=== PATIENT | female | born 1960 | race Caucasian/White ===

== ENCOUNTER 2017-10-24 14:46 | Emergency (ER) | payer OTHER ==
[~2017-10-24] VITALS: Ht 162.6 cm; Wt 90.7 kg
[~2017-10-24 14:46] MED LIST: AUGMENTIN 875 M1 TAB PO; IBU600 MG PO; LISINOPRIL10 MG PO; MOTRIN 600 MG600 MG PO; PERCOCET 325 MG1 TA2 PO; TRAMADOL50 MG PO
[2017-10-24] MEDS ORDERED: MELOXICAM15 M1 PO (16:39)
[2017-10-24] MEDS ORDERED: AUGMENTIN 875-1 EACH PO (16:39)
--- NOTE | 2017-10-24 16:39 | ED THROAT/DENTAL COMPLAINT ---
History of Present Illness General Chief Complaint: General Adult Stated Complaint: SWELLING TO FACE Source: patient Exam Limitations: no limitations Vital Signs & Intake/Output Vital Signs & Intake/Output Vital Signs Date Time Temp Pulse Resp B/P B/P Pulse O2 O2 Flow FiO2 Mean Ox Delivery Rate 10/24 1709 97.7 75 15 150/80 99 Room Air Room Air 10/24 1450 98.0 82 19 170/99 100 Room Air Allergies Coded Allergies: MDX - NUTS (NUTS) (Severe, ANAPHYLAXIS- PEANUTS ARE OKAY THOUGH 05/17/15) Reconcile Medications AMOXICILLIN/POTASSIUM CLAV (Augmentin 875-125 Tablet) 875 MG/125 MG TAB 1 TAB PO BID EAR INFECTION Amoxicillin/Potassium Clav (Augmentin 875-125 Tablet) 875 MG-125 MG TABLET 1 TAB PO BID PERIORBITAL CELLULITIS Ibuprofen (Ibu) 600 MG TAB 1 TAB PO BID PRN PAIN Lisinopril 10 MG TAB 1 TAB PO DAILY BP (Reported) Meloxicam 15 MG TABLET 1 TAB PO DAILY PRN INFLAMMATION OXYCODONE HCL/ACETAMINOPHEN (Percocet 5-325 MG Tablet) 325 MG/5 MG TAB 1 TAB PO Q4-6 PRN PRN PAIN Triage Note: PT TO ED FOR L SIDED FACIAL SWELLING, STATING SHE HAD A CRACKED TOOTH FOR SEVERAL WEEKS BUT NOTICED THE SWELLING BECAME WORSE OVER THE PAST SEVERAL DAYS. Triage Nurses Notes Reviewed? yes Onset: Gradual Duration: constant Timing: recent history Severity: moderate Severity Numbers: 5 No Modifying Factors: none HPI: Patient is a 57-year-old female who presents emergency room with concerns of a gradual onset of a 3 to four-day history of left-sided facial swelling and pain and mild left ear pain. Patient does admit to poor dental hygiene and believes that she fractured a tooth approximate 2 weeks ago however denies any difficulty breathing difficulty swallowing done swelling dental pain tongue swelling lip swelling or itching sensation or shortness of breath (Edmar Munoz) Past History Travel History Traveled to [place] past 21 day No Medical History Any Pertinent Medical History? 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 No (Edmar Munoz) Review of Systems Review of Systems Constitutional: Reports: see HPI. EENTM: Reports: see HPI. Respiratory: Reports: no symptoms. Cardiovascular: Reports: no symptoms. GI: Reports: no symptoms. Genitourinary: Reports: no symptoms. Musculoskeletal: Reports: no symptoms. Skin: Reports: see HPI. Neurological/Psychological: Reports: no symptoms. Hematologic/Endocrine: Reports: no symptoms. Immunologic/Allergic: Reports: no symptoms. All Other Systems: Reviewed and Negative (Edmar Munoz) Physical Exam Physical Exam General Appearance: no apparent distress, alert, comfortable Head: atraumatic Eyes: Bilateral: normal appearance, PERRL, EOMI. Ears: Bilateral: canal normal, Tympanic normal. Mouth/Throat: normal mouth inspection, pharynx normal Neck: normal inspection, supple, full range of motion Cardiovascular/Respiratory: normal breath sounds, normal peripheral pulses Neurologic/Psych: no motor/sensory deficits, awake, alert Skin: intact Comments: Noted left inferior periorbit and left maxillary facial swelling and mild erythema warmth and tenderness Diagram Dental: 1) Noted generalized poor dental hygiene however no gum swelling no lip swelling no tongue swelling Pharynx normal no trismus Core Measures ACS in differential dx? No Sepsis Present: No Sepsis Focused Exam Completed? No (Edmar Munoz) Progress Differential Diagnosis: aspirated tooth, carious tooth, epiglottitis, Ludwigs angina, meningitis, odontogenic abscess, jose-tonsillar abscess, pharyngeal for. body, stomatitis/gingivitis, strep pharyngitis, tooth fracture Plan of Care: No concerns of anaphylaxis or angioedema at this time patient's oropharynx was unremarkable except for poor dental hygiene no gum abscess noted no peritonsillar abscess noted no concerns of orbital cellulitis patient will be treated for concerns of periorbital cellulitis. Upon discharge patient looks well nontoxic-appearing afebrile (Edmar Munoz) Departure Departure Disposition: HOME OR SELF CARE Condition: Stable Clinical Impression Primary Impression: Periorbital cellulitis of left eye Referrals: [facility] EN[facility],Efrain French (PCP/Family) Additional Instructions: As discussed begin warm compresses to the region and begin the prescription meloxicam for pain and inflammation and the prescription of Augmentin for breakthrough pain relief, if you cannot be reevaluated by primary care doctor in 2 days return to emergency room. If symptoms worsen or if YOU develop worsening pain swelling or fevers return to the emergency room immediately. Prescriptions waiting at [facility] Departure Forms: Customer Survey General Discharge Information Prescriptions: Current Visit Scripts Amoxicillin/Potassium Clav (Augmentin 875-125 Tablet) 1 TAB PO BID #20 TAB Meloxicam 1 TAB PO DAILY PRN INFLAMMATION #10 TAB (Edmar Munoz) PA/PLANT PHYSIOLOGIST Co-Sign Statement Statement: ED Attending supervision documentation- [] I saw and evaluated the patient. I have also reviewed all the pertinent lab results and diagnostic results. I agree with the findings and the plan of care as documented in the PA's/PLANT PHYSIOLOGIST's documentation. [X] I have reviewed the ED Record and agree with the PA's/PLANT PHYSIOLOGIST's documentation. [] Additions or exceptions (if any) to the PAs/PLANT PHYSIOLOGIST's note and plan are summarized below: [] (Dioni Munoz DO
[2017-10-24 17:09] VITALS: BP 150/80
== END 2017-10-24 17:09 ==
LOC: ERH 14:46
DX: L03.213 Periorbital cellulitis (principal)

== ENCOUNTER 2018-04-20 21:04 | Observation (INO) | payer OTHER ==
[~2018-04-20] VITALS: Ht 160 cm; Wt 90.7 kg
[~2018-04-20 21:04] MED LIST changes: +AUGMENTIN 875-1 EACH PO; +MELOXICAM15 M1 PO
--- NOTE | 2018-04-20 21:21 | ED GENERAL ADULT ---
History of Present Illness General Chief Complaint: General Adult Stated Complaint: "BLURRY VISION,CHEST PAIN, BILAT.LEG PAIN X 1WK" Source: patient Exam Limitations: no limitations Vital Signs & Intake/Output Vital Signs & Intake/Output Vital Signs Date Time Temp Pulse Resp B/P B/P Pulse O2 O2 Flow FiO2 Mean Ox Delivery Rate 04/21 0302 97.9 77 20 166/98 95 Room Air 04/21 0234 74 162/86 04/21 0109 74 158/70 04/21 0031 74 169/72 04/20 2355 98.1 73 18 176/84 95 Room Air 04/20 2342 81 194/80 04/20 2333 81 194/80 04/20 2253 77 195/84 04/20 2251 77 195/84 04/20 2218 75 188/90 04/20 2153 78 18 188/90 95 Room Air 04/20 2139 78 208/110 04/20 2139 78 18 208/110 94 Room Air 04/20 2130 Room Air 04/20 2110 98.0 85 18 183/96 97 Room Air ED Intake and Output 04/21 0000 04/20 1200 Intake Total Output Total Balance Patient 200 lb Weight Allergies Coded Allergies: nut - unspecified (Severe, ANAPHYLAXIS- PEANUTS ARE OKAY THOUGH 04/20/18) Reconcile Medications No Known Home Medications Triage Note: 57F W MULTIPLE COMPLAINTS. REPORTS CHEST TIGHTNESS AND SOB FOR A WEEK, DENIES CHEST PAIN. LOWER LEG SWELLING. REPORTS EYES KEEP GETTING MORE AND MORE BLURRY, CAN BARELY SEE OUT OF LEFT EYE (HX RETINAL DETACHMENT) AND RIGHT EYE X2 DAYS. HAS NOT CONTACTED HER PMD. HX HIGH BLOOD PRESSURE, STOPPED TAKING MEDS, HYPERTENSIVE IN TRIAGE. +SMOKER Triage Nurses Notes Reviewed? yes Onset: Abrupt Duration: week(s): (1), changing over time, continues in ED Timing: single episode today Injury Environment: home Severity: mild, moderate Severity Numbers: 6 No Modifying Factors: none Associated Symptoms: chest pain LMP (ages 10-50): unknown : No Patient currently breastfeeds: No HPI: 57 year female history of hypertension and obesity presents for evaluation of chest pain shortness of breath and blurred vision. Patient reports she first noticed chest pain about one week ago. The pain is located in the center of her chest described as tightness. Associated with shortness of breath. The pain is intermittent. She was felt to 6 PM tonight. It happens both at rest and during exertion and nothing seems to bring it on. She's never had this before. She denies headaches or dizziness. She does report she has a history of a retinal detachment in the left eye and has poor vision in that eye at baseline. She does report that over the past week she has had blurred vision in her right eye which is usually her good eye. She denies any visual loss occurred and sensation no eye pain discharge or redness. She does wear glasses. She also reports associated lower extremity edema. No hemoptysis no recent surgery recent trauma or immobilization. No history of PE. No back pain abdominal pain nausea or vomiting. No headaches. Patient is a current every day smoker. She presented was treated for hypertension with lisinopril but states she has not taken it in many months. (Checo Morales) Past History Travel History Traveled to [place] past 21 day No Medical History Any Pertinent Medical History? 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 No (Checo Morales) Review of Systems Review of Systems Constitutional: Reports: no symptoms. EENTM: Reports: no symptoms. Respiratory: Reports: see HPI, short of breath. Cardiovascular: Reports: see HPI, chest pain. GI: Reports: no symptoms. Genitourinary: Reports: no symptoms. Musculoskeletal: Reports: no symptoms. Skin: Reports: no symptoms. Neurological/Psychological: Reports: no symptoms. Hematologic/Endocrine: Reports: no symptoms. Immunologic/Allergic: Reports: no symptoms. All Other Systems: Reviewed and Negative (Checo Morales) Physical Exam Physical Exam General Appearance: well developed/nourished, no apparent distress, alert, awake , obese Head: atraumatic, normal appearance Eyes: Bilateral: normal appearance, PERRL, EOMI. Ears, Nose, Throat: normal pharynx, normal ENT inspection, hearing grossly normal Neck: normal inspection, supple, full range of motion Respiratory: normal breath sounds, chest non-tender, no respiratory distress, lungs clear Cardiovascular: regular rate/rhythm, normal peripheral pulses Peripheral Pulses: 2+ radial (R), 2+ radial (L) Gastrointestinal: soft, non-tender Back: normal inspection, normal range of motion Extremities: normal inspection, normal capillary refill, normal range of motion, no edema Neurologic/Psych: no motor/sensory deficits, awake, alert, oriented x 3, normal gait, normal mood/affect Skin: intact, normal color, warm/dry Lymphatic: no anterior cervical zak Core Measures ACS in differential dx? Yes CVA/TIA Diagnosis: No Sepsis Present: No Sepsis Focused Exam Completed? No (Delvin SAMS,Checo) Progress Differential Diagnoses I considered the following diagnoses in my evaluation of the patient: [ Hypertensive urgency, hypertensive emergency, acute coronary syndrome, PE, aortic dissection, CVA, TIA, pneumonia, COPD] Plan of Care: Orders Procedure Date/time Status Heart Healthy Diet 04/22 B Active Heart Healthy Diet 04/21 B Active TROPONIN LEVEL 04/21 0600 Active MAGNESIUM 04/21 0600 Active LIPID PANEL 04/21 0600 Active GLYCOSYLATED HGB 04/21 06 Active CBC WITHOUT DIFFERENTIAL 04/21 0600 Active BASIC ELECTROLYTES PLUS BUN&CR 04/21 0600 Active EKG 04/21 0600 Active ECHOCARDIOGRAM 04/21 0600 Active Teach/Educate 04/21 0251 Active Pain Treatment and Response 04/21 025 Active Nutritional Intake, Monitor 04/21 0251 Active Isolation 04/21 0251 Active Patient Care Conference 04/21 0251 Active Pathway - chart 04/21 0231 Active House Staff 04/[address] in observation 04/21 0128 Active ED Holding Orders 04/21 0128 Active Vital Signs 04/21 0128 Active Code Status 04/21 0128 Active Patient Data 04/21 0056 Active TROPONIN LEVEL 04/21 0030 Complete EKG 04/21 0030 Active VTE Mechanical Prophylaxis 04/21 UNK Active Activity/Ambulation 04/21 UNK Active Add-on Test (ER Only) 04/20 2346 Active Add-on Test (ER Only) 04/20 2331 Active Add-on Test (ER Only) 04/20 2129 Active TSH REFLEX 04/20 2125 Complete D-DIMER 04/20 2125 Complete B-TYPE NATRIURETIC PEP (BNP) 04/20 2125 Complete Intake & Output 04/20 2111 Active URINALYSIS 04/20 2109 Complete TROPONIN LEVEL 04/20 2109 Complete MAGNESIUM 04/20 2109 Complete COMPREHENSIVE METABOLIC PANEL 04/20 2109 Complete CBC WITHOUT DIFFERENTIAL 04/20 2109 Complete EKG 04/20 2107 Active Current Medications Sig/Moo Start time Last Medication Dose Stop Time Status Admin Atorvastatin Calcium 40 MG 1700 04/21 1700 AC (Lipitor) Aspirin 81 MG DAILY 04/21 0900 AC (Aspirin) Enoxaparin Sodium 40 MG DAILY 04/21 09 AC (Lovenox) Lisinopril 10 MG DAILY 04/21 09 AC (Prinivil) Metoprolol Tartrate 12.5 MG BID 04/21 09 AC (Lopressor) Acetaminophen 650 MG Q6P PRN 04/21 0230 AC (Tylenol) Laboratory Tests 04/21/18 0030: Troponin I < 0.01 04/20/182144: Urine Color YEL, Urine Clarity HAZY H, Urine pH 6.0, Ur Specific [place] 1.025, Urine Protein TRACE H, Urine Ketones NEG, Urine Nitrite NEG, Urine Bilirubin NEG, Urine Urobilinogen 1.0, Ur Leukocyte Esterase TRACE H, Ur Microscopic SEDIMENT EXAMINED, Urine RBC 1-3, Urine WBC 5-10 H, Ur Epithelial Cells MANY H , Urine Bacteria MOD H, Urine Mucus FEW, Urine Hemoglobin SMALL H, Urine Glucose NEG 04/20/182124: Anion Gap 6, Estimated GFR > 60, BUN/Creatinine Ratio 18.3, Glucose 104 H, Calcium 9.9, Magnesium 1.9, Total Bilirubin 0.4, AST 24, ALT 32, Alkaline Phosphatase 81, Troponin I < 0.01, Myx-G-Kfuhtrzztgt Pept 60.7, Total Protein 6.9, Albumin 4.1, Globulin 2.8, Albumin/Globulin Ratio 1.5, TSH &T3 &Free T4 Intrp 3.690, D-Dimer High Sensitivty < 200, CBC w Diff NO MAN DIFF REQ, RBC 5.60 H, MCV 85.0, MCH 28.2, MCHC 33.2, RDW 14.7 H, MPV 10.1, Gran % 65.3, Lymphocytes % 22.9, Monocytes % 9.1, Eosinophils % 2.1, Basophils % 0.6, Absolute Granulocytes 8.7 H, Absolute Lymphocytes 3.0, Absolute Monocytes 1.2 H, Absolute Eosinophils 0.3, Absolute Basophils 0.1 Patient is here for evaluation of chest pain shortness of breath and hypertension. Currently patient has no chest pain she states the last episode was around 6 PM tonight. Initial blood pressure is 180s over 90s. Repeat blood pressure is 200s over 110s. Patient was medicated initially with 10 mg IV labetalol she was also given her 10 mg of lisinopril. Labs chest x-ray EKG ordered. Blood work overall is unremarkable she does have a mildly elevated white count of 13,000. Urine shows some sinus infection and patient is asymptomatic. Patient remains significantly hypertensive 10 mg of hydralazine was ordered. Patient will also get a CTA to rule out dissection given the patient has pain with hypertensive urgency. CTA is negative. Patient still was hypertensive and with 15 mg of IV labetalol was ordered patient had some improvement in her blood pressure to the 170s over 80s. Repeat EKG does not show any significant change. Given patient's multiple risk factors significant hypertension associated with chest pain and blurred vision she will be brought into the hospital to rule out acute coronary syndrome and to get control of her blood pressure. Case discussed with Dr. Brennan and she agrees. Diagnostic Imaging: Viewed by Me: Radiology Read, CT Scan. Discussed w/RAD: Radiology Read, CT Scan. Radiology Impression: PATIENT: GREG ABREU PRESENT AGE: 57 PATIENT ACCOUNT NO: [id number] : 61 LOCATION: [facility] ORDERING PHYSICIAN: Checo SAMS SERVICE DATE: 04/20/18 EXAM TYPE: CAT - CT HEAD WO IV CONTRAST EXAMINATION: CT HEAD WITHOUT CONTRAST CLINICAL INFORMATION: Blurred vision. Headache. COMPARISON: None TECHNIQUE: Contiguous axial imaging was performed from the skull base to vertex without intravenous administration of contrast. DLP: 600.42 mGy-cm FINDINGS: There is no evidence of acute intracranial hemorrhage or territorial infarction. No abnormal mass effect or midline shift is seen. Arias to white matter differentiation is well preserved. No extra-axial fluid collections are identified. The ventricles are normal in size. There is no abnormal attenuation within the brain parenchyma. The osseous structures and soft tissues are normal. The mastoid air cells and visualized portions of the paranasal sinuses are well aerated. IMPRESSION: No acute intracranial pathology. DICTATED BY: Presley Chew MD DATE/TIME DICTATED:04/20/182220 SUPERVISOR FELLING BUCKING:SHARON DATE/TIME TRANSCRIBED:04/20/182220 CONFIDENTIAL, DO NOT COPY WITHOUT APPROPRIATE AUTHORIZATION., PATIENT: GREG ABREU PRESENT AGE: 57 PATIENT ACCOUNT NO: [id number] : 62 LOCATION: [facility] ORDERING PHYSICIAN: Checo SAMS SERVICE DATE: 04/20/18 EXAM TYPE: CAT - CTA CHEST-AORTIC DISSECTION EXAMINATION: CT CHEST WITH CONTRAST, CTA chest-aortic dissection protocol CLINICAL INFORMATION: Chest pain. Hypertensive COMPARISON: None. TECHNIQUE: Noncontrast axial CT images obtained through the chest. IV injection of 95 mL Optiray 320 administered. Postcontrast images obtained through the chest. Coronal and sagittal reformatted images performed at CT scanner. Axial MIP post processed sequence performed at the CT scanner. DLP: 1491.91 mGy-cm. FINDINGS: Vascular: The thoracic aorta is normal in caliber. There is no aortic dissection. There are small calcifications of the wall of the aorta at the aortic arch. Normal three-vessel aortic arch. The origin of great vessels are unremarkable. There is good opacification also of the pulmonary arteries with no evidence of pulmonary embolism. LUNGS: The lungs are clear with no evidence of inflammation or nodules. MEDIASTINUM: There is a small hiatal hernia. No pericardial effusion. No mediastinal mass. No significant lymphadenopathy. PLEURA: There is no pleural effusion. No pleural mass or thickening. AXILLA: No lymphadenopathy. UPPER ABDOMEN: There is diffuse low attenuation from fatty change of liver. There is a small gallstone seen at the neck of the gallbladder. OSSEOUS STRUCTURES: Degenerative spondylosis spine multilevel disc height narrowing and plate spurring of the vertebrae. IMPRESSION : Normal CT chest. Normal thoracic aorta. DICTATED BY: Presley Chew MD DATE/TIME DICTATED:04/20/182332 SUPERVISOR FELLING BUCKING:SHARON DATE/TIME TRANSCRIBED:2332 CONFIDENTIAL, DO NOT COPY WITHOUT APPROPRIATE AUTHORIZATION. < Electronically signed in Other Vendor System> SIGNED BY: Presley Chew MD 234 CXR Impression: PATIENT: GREG ABREU PRESENT AGE: 57 PATIENT ACCOUNT NO: [id number] : 62 LOCATION: [facility] ORDERING PHYSICIAN: Checo SAMS SERVICE DATE: 04/20/18 EXAM TYPE: RAD - XRY-PORTABLE CHEST XRAY EXAMINATION: XR PORTABLE CHEST CLINICAL INFORMATION: Chest pain. Presumptive diagnosis: Pneumonia, CHF COMPARISON: 04/08/2015 TECHNIQUE: Portable frontal view of the chest was obtained. FINDINGS: Lung volumes are normal. Lungs appear clear. No focal consolidation, pneumothorax, or pleural effusion. Cardiac silhouette is at the upper limits of normal in size, unchanged. Pulmonary vasculature is normal. No interstitial edema. Degenerative disc disease is present in the thoracic spine. Osseous structures are otherwise unremarkable. IMPRESSION: No acute pulmonary findings. DICTATED BY: Jin Cheema MD DATE/TIME DICTATED:04/20/182139 SUPERVISOR FELLING BUCKING:SHARON DATE/TIME TRANSCRIBED:2139 CONFIDENTIAL, DO NOT COPY WITHOUT APPROPRIATE AUTHORIZATION. Initial ED EKG: normal sinus rhythm, nonspecific ST T wave chg, LEFT ATRIAL ABN, IVCD Prior EKG: unchanged Repeat EKG: unchanged (Checo Morales) Departure Departure Disposition: STILL A PATIENT Condition: Stable Clinical Impression Primary Impression: Hypertensive urgency Secondary Impressions: Chest pain Qualifiers: Chest pain type: unspecified Qualified Code: R07.9 - Chest pain, unspecified Referrals: [facility],Efrain French (PCP/Family) Departure Forms: Customer Survey General Discharge Information Prescriptions: Current Visit Scripts No Known Home Medications Admission Note Spoke With: John Johnson MD Documentation of Exam: Documentation of any treatments & extenuating circumstances including Concerns Regarding Discharge (functional status, medication knowledge or non-compliance, living conditions, etc.) that warrant an admission rather than observation: [ Patient has hypertensive urgency that required multiple IV medications to get into a safe range. She also has chest pain with multiple risk factors. For IV antihypertensives, cardiology consult, telemetry, serial labs, serial EKGs, echocardiogram, medication adjustment] (Checo Morales) PA/INSURANCE LOSS CONTROL SURVEYOR Co-Sign Statement Statement: ED Attending supervision documentation- [] I saw and evaluated the patient. I have also reviewed all the pertinent lab results and diagnostic results. I agree with the findings and the plan of care as documented in the PA's/INSURANCE LOSS CONTROL SURVEYOR's documentation. [X] I have reviewed the ED Record and agree with the PA's/INSURANCE LOSS CONTROL SURVEYOR's documentation. [] Additions or exceptions (if any) to the PAs/INSURANCE LOSS CONTROL SURVEYOR's note and plan are summarized below: [] (Anu ENRIQUE, Kadi) Critical Care Note Critical Care Note Critical Care Time: 75-104 min (Checo Morales)
[2018-04-20 21:40] LABS: ABSOLUTE BASOPHIL COUNT 0.1 /CUMM (0.0-0.2); ABSOLUTE EOSINOPHIL COUNT 0.3 /CUMM (0.0-0.7); ABSOLUTE GRANULOCYTE CT 8.7 /CUMM (1.4-6.5); ABSOLUTE MONOCYTE COUNT 1.2 /CUMM (0.10-0.60); BASOPHIL % 0.6 % (0.0-2.0); EOSINOPHIL % 2.1 % (0-5); GRANULOCYTE % 65.3 % (42.2-75.2); HEMATOCRIT 47.6 % (37-47); MEAN CORPUSCULAR HGB 28.2 PG (27.0-31.0); MEAN CORPUSCULAR HGB CONC 33.2 G/DL (33.0-37.0); MEAN PLATELET VOLUME 10.1 FL (7.4-10.4); PLATELET COUNT 190 /CUMM (130-400); RBC DISTRIBUTION WIDTH 14.7 % (11.5-14.5); WHITE BLOOD CELL COUNT 13.3 /CUMM (4.8-10.8)
--- NOTE | 2018-04-20 21:44 | RADIOLOGY REPORT ---
EXAMINATION: XR PORTABLE CHEST CLINICAL INFORMATION: Chest pain. Presumptive diagnosis: Pneumonia, CHF COMPARISON: 04/08/2015 TECHNIQUE: Portable frontal view of the chest was obtained. FINDINGS: Lung volumes are normal. Lungs appear clear. No focal consolidation, pneumothorax, or pleural effusion. Cardiac silhouette is at the upper limits of normal in size, unchanged. Pulmonary vasculature is normal. No interstitial edema. Degenerative disc disease is present in the thoracic spine. Osseous structures are otherwise unremarkable. IMPRESSION: No acute pulmonary findings.
--- NOTE | 2018-04-20 22:31 | CT SCAN REPORT ---
EXAMINATION: CT HEAD WITHOUT CONTRAST CLINICAL INFORMATION: Blurred vision. Headache. COMPARISON: None TECHNIQUE: Contiguous axial imaging was performed from the skull base to vertex without intravenous administration of contrast. DLP: 600.42 mGy-cm FINDINGS: There is no evidence of acute intracranial hemorrhage or territorial infarction. No abnormal mass effect or midline shift is seen. Arias to white matter differentiation is well preserved. No extra-axial fluid collections are identified. The ventricles are normal in size. There is no abnormal attenuation within the brain parenchyma. The osseous structures and soft tissues are normal. The mastoid air cells and visualized portions of the paranasal sinuses are well aerated. IMPRESSION: No acute intracranial pathology.
--- NOTE | 2018-04-20 23:42 | CT SCAN REPORT ---
EXAMINATION: CT CHEST WITH CONTRAST, CTA chest-aortic dissection protocol CLINICAL INFORMATION: Chest pain. Hypertensive COMPARISON: None. TECHNIQUE: Noncontrast axial CT images obtained through the chest. IV injection of 95 mL Optiray 320 administered. Postcontrast images obtained through the chest. Coronal and sagittal reformatted images performed at CT scanner. Axial MIP post processed sequence performed at the CT scanner. DLP: 1491.91 mGy-cm. FINDINGS: Vascular: The thoracic aorta is normal in caliber. There is no aortic dissection. There are small calcifications of the wall of the aorta at the aortic arch. Normal three-vessel aortic arch. The origin of great vessels are unremarkable. There is good opacification also of the pulmonary arteries with no evidence of pulmonary embolism. LUNGS: The lungs are clear with no evidence of inflammation or nodules. MEDIASTINUM: There is a small hiatal hernia. No pericardial effusion. No mediastinal mass. No significant lymphadenopathy. PLEURA: There is no pleural effusion. No pleural mass or thickening. AXILLA: No lymphadenopathy. UPPER ABDOMEN: There is diffuse low attenuation from fatty change of liver. There is a small gallstone seen at the neck of the gallbladder. OSSEOUS STRUCTURES: Degenerative spondylosis spine multilevel disc height narrowing and plate spurring of the vertebrae. IMPRESSION: Normal CT chest. Normal thoracic aorta.
--- NOTE | 2018-04-21 01:18 | History & Physical ---
Moris Watkins 04/21/18 0116: General Information and HPI MD Statement: I have seen and personally examined GREG ABREU and documented this H&P. The patient is a 57 year old F who presented with a patient stated chief complaint of BLURRY VISION, CHEST PAIN X 1 WEEK. Source of Information: patient, old records Exam Limitations: poor historian History of Present Illness: Patient is a 57-year-old female with past medical history of hypertension who presents with chest pain, shortness of breath, and blurred vision. Patient reports she first noticed that the chest pain about a week ago. The pain is located substernally and is described as tightness. It is associated with shortness of breath but both the shortness of breath and the chest pain are intermittent. The pain happens both at rest and during exertion, however exertion seems to make it worse. Sitting still does seem to improve it. She reports over the past week she has had blurred vision in her "good" eye, the right one. She also describes what sounds like a central scotoma on her left eye. She denies any vision loss and no eye pain, discharge or redness. She does wear corrective lenses. She denies hemoptysis, recent surgery, recent trauma, or immobilization. No history of pulmonary embolism. Patient is a current smoker. Of note, in the past patient was treated for hypertension with lisinopril, but states she is not taking it in a few years. In the emergency department, patient was found to have a blood pressure >200/100 , a leukocytosis of 13.3, her EKG showed normal sinus rhythm with nonspecific ST -T wave changes. Her chest x-ray showed no acute pulmonary findings, head CT showed no acute intracranial pathology, chest CT showed no abnormalities. Her initial troponin was negative. Patient is being admitted to telemetry for consideration of hypertensive urgency. Allergies/Medications Allergies: Coded Allergies: nut - unspecified (Severe, ANAPHYLAXIS- PEANUTS ARE OKAY THOUGH 04/20/18) Home Med list No Known Home Medications Compliance With Home Meds: UNKNOWN Past History Travel History Traveled to [place] past 21 day No Medical History Neurological: NONE EENT: NONE Cardiovascular: hypertension Respiratory: NONE Gastrointestinal: NONE Hepatic: NONE Renal: NONE Musculoskeletal: NONE Psychiatric: NONE Endocrine: NONE Blood Disorders: NONE Cancer(s): NONE HYDROGEOLOGIST/Reproductive: NONE History of MRSA: No History of VRE: No History of CDIFF: No Surgical History Surgical History: D&C Past Family/Social History Psychosocial History Where do you live? Home Who Do You Live With? spouse Services at Home: None Primary Language: [place] Smoking Status: Current Everyday Smoker ETOH Use: denies use Illicit Drug Use: denies illicit drug use Functional Ability ADLs Independent: dressing, eating, toileting, bathing. Ambulation: independent IADLs Independent: shopping, housework, finances, food prep, telephone, transportation , medication admin. Review of Systems Review of Systems Constitutional: Reports: no symptoms. EENTM: Reports: blurred vision, visual changes. Denies: eye pain, eye drainage, eye tearing. Cardiovascular: Reports: chest pain. Denies: palpitations, syncope. Respiratory: Reports: no symptoms. GI: Reports: no symptoms. Genitourinary: Reports: no symptoms. Musculoskeletal: Reports: no symptoms. Skin: Reports: no symptoms. Neurological/Psychological: Reports: no symptoms. All Other Systems: Reviewed and Negative Exam & Diagnostic Data Last 24 Hrs of Vital Signs/I&O Vital Signs Date Time Temp Pulse Resp B/P B/P Pulse O2 O2 Flow FiO2 Mean Ox Delivery Rate 04/21 0302 97.9 77 20 166/98 95 Room Air 04/21 0234 74 162/86 04/21 0109 74 158/70 04/21 0031 74 169/72 04/20 2355 98.1 73 18 176/84 95 Room Air 04/20 2342 81 194/80 04/20 2333 81 194/80 04/20 2253 77 195/84 04/20 2251 77 195/84 04/20 2218 75 188/90 04/20 2153 78 18 188/90 95 Room Air 04/20 2139 78 208/110 04/20 2139 78 18 208/110 94 Room Air 04/20 2130 Room Air 04/20 2110 98.0 85 18 183/96 97 Room Air Intake & Output 04/21 0800 04/21 0000 04/20 1600 Intake Total Output Total Balance Patient 200 lb 200 lb Weight Physical Exam General Appearance Alert, Oriented X3, Cooperative, No Acute Distress Skin No Rashes, No Breakdown, No Significant Lesion Skin Temp/Moisture Exam: Warm/Dry HEENT Atraumatic, PERRLA, EOMI, Mucous Membr. moist/pink Neck Supple, No JVD, No thryomegaly Cardiovascular Regular Rate, Normal S1, Normal S2, No Murmurs Lungs Clear to Auscultation, Normal Air Movement Abdomen Soft, No Tenderness Neurological Normal Speech, Strength at 5/5 X4 Ext, Normal Tone, Sensation Intact Extremities No Clubbing, No Cyanosis, No Edema Last 24 Hrs of Labs/Stuart: Laboratory Tests 04/21/18 0030: Troponin I < 0.01 04/20/185: Urine Color YEL, Urine Clarity HAZY H, Urine pH 6.0, Ur Specific [place] 1.025, Urine Protein TRACE H, Urine Ketones NEG, Urine Nitrite NEG, Urine Bilirubin NEG, Urine Urobilinogen 1.0, Ur Leukocyte Esterase TRACE H, Ur Microscopic SEDIMENT EXAMINED, Urine RBC 1-3, Urine WBC 5-10 H, Ur Epithelial Cells MANY H , Urine Bacteria MOD H, Urine Mucus FEW, Urine Hemoglobin SMALL H, Urine Glucose NEG 04/20/182124: Anion Gap 6, Estimated GFR > 60, BUN/Creatinine Ratio 18.3, Glucose 104 H, Calcium 9.9, Magnesium 1.9, Total Bilirubin 0.4, AST 24, ALT 32, Alkaline Phosphatase 81, Troponin I < 0.01, [id number] Pept 60.7, Total Protein 6.9, Albumin 4.1, Globulin 2.8, Albumin/Globulin Ratio 1.5, TSH &T3 &Free T4 Intrp 3.690, D-Dimer High Sensitivty < 200, CBC w Diff NO MAN DIFF REQ, RBC 5.60 H, MCV 85.0, MCH 28.2, MCHC 33.2, RDW 14.7 H, MPV 10.1, Gran % 65.3, Lymphocytes % 22.9, Monocytes % 9.1, Eosinophils % 2.1, Basophils % 0.6, Absolute Granulocytes 8.7 H, Absolute Lymphocytes 3.0, Absolute Monocytes 1.2 H, Absolute Eosinophils 0.3, Absolute Basophils 0.1 Diagnostic Data EKG Results Normal sinus rhythm, nonspecific ST-T wave changes CXR Results No acute pulmonary findings Other Results Head CTno acute intracranial pathology Chest CTno abnormalities Assessment/Plan Assessment: Patient is a 57-year-old female with past medical history of hypertension who presents with chest pain, shortness of breath, and blurred vision of one week duration. Problem list/plan: Hypertensive urgency -Received IV labetalol and hydralazine in the ED taken in years DVT prophylaxis: Subcu heparin and ALPS Heart healthy diet Patient is full code As Ranked By This Provider Problem List: 1. Hypertensive urgency 2. Chest pain Qualifiers Chest pain type: unspecified Qualified Code: R07.9 - Chest pain, unspecified Core Measures/Misc (05/16) Acute Coronary Syndrome ACS Diagnosis: No Congestive Heart Failure Congestive Heart Failure Diagnosis No Cerebrovascular Accident CVA/TIA Diagnosis: No VTE (View Protocol) VTE Risk Factors Age>40 No Mechanical VTE Prophylaxis d/t N/A MechProphylax Ordered No VTE Pharm Prophylaxis d/t NA PharmProphylax ordered Sepsis (View protocol) Sepsis Present: No If YES complete Sepsis Event Note If YES complete Sepsis Event Note Rene Carlos MD 04/21/18 0228: Core Measures/Misc (05/16) Sepsis (View protocol) If YES complete Sepsis Event Note If YES complete Sepsis Event Note Resident Review Statement Resident Statement: examined this patient, discussed with hospital intern, agreed with hospital intern, reviewed EMR data (avail) Other Findings: 57 year old female with PMH of obesity, 40 pack-years current everyday smoker, and HTN off medications for several years because of lack of insurance coverage presents with several weeks of intermittent chest pain, that acutely worsened with associated exertional dyspnea, and visual changes over the past week. She describes two weeks intermittent substernal pressure like nonradiating chest pain that last approximately 5 mins each episode worse with exertion and improved with rest. Today, her pain was more severe entire chest tightness with associated exertional dyspnea prompting evaluation. Her left eye she describes as her "weak eye" originally stated she had retinal detachment although that doesn't seem to be the case. She has had chronic floaters in that eye but one week of describing a central scotoma with a shadow in the middle with preserved peripheral vision. Her right eye she states has become more blurry over the past two days. She does wear corrective lenses and has no pain with eye movements or conjuctival/scleral injection. FH notable for CHF mother 68, sister 40 cardiac complications s/p postop adrenal tumor, father bladder ca. In the ED, she presented with a normal heart rate and blood pressure of 208/110. She was treated with labetalol IV 10mg and 15mg, hydralazine 10mg iv, and lisinopril 10mg po in addition to aspirin 325mg. EKG new RBBB Her first troponin was negative and labs only notable for leukocytosis of 13,300. Her physical exam was AAOx3, NAD, obese, CV RRR S1 S2 no murmurs pulses palpable peripherally, no lower extremity edema lungs CTA, abdomen soft nt/nd bs+, EOMI, sclera noninjectived, YASMIN, positive red reflex with limited fundoscopic exam but no appreciable papillary edema Hypertensive urgency: Chest pain and visual changes for the past week, renal function normal New right bundle branch pattern on EKG, Troponins negative x 2 Blood pressure 208/110 on presentation, now 169/72 Received intravenous labetalol and hydralazine in the ED Restarted lisinopril 10mg Check serial troponins and EKGs Cardiology consultation Consider ophthalmology consultation for dilated retinal exam Echocardiogram for structural heart disease Will likely need stress testing for CAD risk stratification Counseled on smoking cessation Check lipid panel and hemoglobin A1C for risk factor assessment Start aspirin 81mg, atorvastatin 40mg, and metoprolol 12.5mg po bid Goal reduction of MAP by 15-20% acutely Heart healthy diet DVT ppx-lovenox sc Full code John Johnson MD 04/21/18 0433: Core Measures/Misc (05/16) Sepsis (View protocol) If YES complete Sepsis Event Note If YES complete Sepsis Event Note Attending MD Review Statement Attending Statement Attending MD Statement: examined this patient, discuss w/resident/PA/SKEIN DYER, agreed w/resident/PA/SKEIN DYER Attending Assessment/Plan: Patient is seen and examined independently by me. Care plan discussed with durable medical equipment technician and/or resident. I agree with the physical exam findings and plan of care as outlined above with the following changes and additions. 57 yo F with history of HTN, chronic smoker, obesity, retinal detachment of left eye, non compliance with meds, presented with chest tightness and SOB intermittently for 1 week. She has lower leg swelling and blurred vision over the last week. She normally has left eye blurred vision due to left eye retinal detachment but she has new right blurred vision over the last few days. About 6 pm tonight, she has recurrent chest pain with tightness and SOB. She denies fever, chills, headache, lightheadedness, dizziness, diaphoresis, productive cough, abdominal pain, nausea, vomiting, diarrhea or dysuria. She is supposed to be on Lisinopril but stopped few years ago. On exam, heart: regular, S1S2. Lungs: clear bilaterally. Ext: no pedal edema. In the ED, BP as high as 208/110. Patient got Labetalol 10 mg IV, hydralazine 10 mg IV, Lisinopril 10 mg PO then labetalol 15 mg IV. Repeat BP 158/70. Her new blurred vision resolved after BP improved. Patient also got ASA 325 mg PO in the ED. WBC 13.3. D-dimer <200. Troponin <0.01. BNP 60.7. UA is a contaminated sample. CXR shows no acute infiltrate or edema. CT head shows no acute intracranial abnormality. CTA chest shows no acute PE or aortic dissection. EKG#1 shows NSR at 87 with new RBBB. EKG#2 shows NSR at 71 with right bundle pattern. Patient is placed on observation to [facility] for chest pain with new RBBB and hypertensive urgency. Cardiac monitoring. Check serial troponin/EKG. Start ASA, statin, metoprolol and lisinopril. Echocardiogram. Cardiology consult. Repeat UA. Consider Ophthalmology consult. John Johnson MD FACP
[2018-04-21 03:02] VITALS: BP 166/98
[2018-04-21 06:36] VITALS: BP 146/62
--- NOTE | 2018-04-21 07:10 | PN- Housestaff ---
JeffersonEtta branMatthew 04/21/18 0710: Subjective Follow-up For: HTN Subjective: Patient is resting comfortably. Denies headache, chest pain, tingling in her extremities, changes in vision, trouble breathing. No events overnight. No events on telemetry. Review of Systems Constitutional: Reports: see HPI. Objective Last 24 Hrs of Vital Signs/I&O Vital Signs Date Time Temp Pulse Resp B/P B/P Pulse O2 O2 Flow FiO2 Mean Ox Delivery Rate 04/21 1501 98.2 68 18 140/100 98 Room Air 04/21 09 97.9 78 20 146/62 04/21 0919 97.9 78 146/62 04/21 0636 97.9 78 20 146/62 92 Intake & Output 04/22 0800 04/22 0000 04/21 1600 Intake Total 820 Output Total Balance 820 Intake, Oral 820 Physical Exam General Appearance: Alert, Oriented X3, Cooperative, No Acute Distress Skin Temp/Moisture Exam: Warm/Dry HEENT: Atraumatic, EOMI Cardiovascular: Regular Rate, Normal S1, Normal S2 Lungs: Clear to Auscultation, Normal Air Movement Abdomen: Normal Bowel Sounds, Soft, No Tenderness Extremities: No Cyanosis, Normal Pulses, No Tenderness/Swelling Current Medications: Current Medications Sig/Moo Start time Last Medication Dose Route Stop Time Status Admin Acetaminophen 650 MG Q6P PRN 04/21 0230 DCD PO Aspirin 81 MG DAILY 04/21 900 DCD 04/21 PO 0919 Atorvastatin Calcium 40 MG 1700 04/21 1700 DCD PO Enoxaparin Sodium 40 MG DAILY 04/21 900 DCD 04/21 SC 0919 Lisinopril 10 MG DAILY 04/21 900 DCD 04/21 PO 0919 Metoprolol Tartrate 12.5 MG BID 04/21 09 DCD 04/21 PO 0919 Last 24 Hrs of Lab/Stuart Results Last 24 Hrs of Labs/Mics: Laboratory Tests 04/21/18 0633: Anion Gap 6, Estimated GFR > 60, BUN/Creatinine Ratio 20.0, Hemoglobin A1c 6.5 H, Magnesium 2.0, Troponin I < 0.01, Triglycerides 109, Cholesterol 202 H, LDL Cholesterol, Calc 138 H, HDL Cholesterol 43, Cholesterol/HDL Ratio 5 H, CBC w Diff NO MAN DIFF REQ, RBC 5.37, MCV 86.1, MCH 28.4, MCHC 33.0, RDW 14.4, MPV 10.9 H, Gran % 66.6, Lymphocytes % 22.9, Monocytes % 8.6, Eosinophils % 1.6, Basophils % 0.3, Absolute Granulocytes 7.2 H, Absolute Lymphocytes 2.5, Absolute Monocytes 0.9 H, Absolute Eosinophils 0.2, Absolute Basophils 0 Assessment/Plan Assessment: 57-year-old female with past medical history of hypertension who presents with chest pain, shortness of breath, and blurred vision. Patient reports she first noticed the chest pain about a week ago. The pain is located substernally and is described as tightness. It is associated with shortness of breath but both symptoms are intermittent. The pain happens both at rest and during exertion, however exertion seems to make it worse. Resting seems to improve it. She reports over the past week she has had blurred vision in her "good" eye, the right one. In the emergency department, patient was found to have a blood pressure >200/100, a leukocytosis of 13.3, her EKG showed normal sinus rhythm with nonspecific ST-T wave changes. Her chest x-ray showed no acute pulmonary findings, head CT showed no acute intracranial pathology, chest CT showed no abnormalities. Her initial troponin was negative. Patient admitted to telemetry for consideration of hypertensive urgency. ECG 1 showed NSR at 87 with new RBBB ECG 2 showed NSR at 71 with RBBB pattern - cardiology consult - trops negative x 3 - encourage ambulation - echocardiogram - continue current regimen started inpatient: aspirin 81mg, Linsinopril 10mg, Metoprolol 12.5 mg BID, Atorvastatin 40mg - Cardiac recs appreciated: From a cardiac standpoint, once the patient's blood pressure is well controlled, if she remains asymptomatic, she can be safely discharged for further cardiac evaluation as an outpatient with a pharmacologic nuclear stress test at a later date Problem List: 1. Hypertensive urgency Pain Ratin Pain Location: na Pain Goal: Remain pain free Pain Plan: per pathway Tomorrow's Labs & Rationales: None Michelle Lala MD 04/21/18 1210: Attending Review Statement Attending Statement Attending Statement: examined this patient, discuss w/resident/PA/BRANCH OPERATION EVALUATION MANAGER, agreed w/resident/PA/BRANCH OPERATION EVALUATION MANAGER, reviewed EMR data (avail), discussed with nursing, discussed with case mgmt, amended to note Attending Assessment/Plan: Patient seen and examined. Resting comfortably not in any acute distress. Denies any further chest pain. Denies shortness of breath or palpitations. Blood pressure has improved significantly compared to presentation. No events on telemetry monitoring overnight. CT angiogram shows no evidence of aortic aneurysm. We will continue the current antihypertensive regimen. If her blood pressure remained stable she will be discharged on this regimen. We will follow-up results of echocardiogram to evaluate for cardiomyopathy. Given her history of uncontrolled hypertension abnormal EKG and complaints of chest pain she will benefit from stress test to rule out ischemic heart disease as etiology of her chest pain. She was seen by the cardiology service. Recommendations are for outpatient stress test. She will need referral to primary care provider and will benefit from referral to the lifestyle modification clinic.
[2018-04-21 08:25] LABS: ABSOLUTE BASOPHIL COUNT 0 /CUMM (0.0-0.2); ABSOLUTE EOSINOPHIL COUNT 0.2 /CUMM (0.0-0.7); ABSOLUTE GRANULOCYTE CT 7.2 /CUMM (1.4-6.5); ABSOLUTE LYMPH COUNT 2.5 /CUMM (1.2-3.4); ABSOLUTE MONOCYTE COUNT 0.9 /CUMM (0.10-0.60); BASOPHIL % 0.3 % (0.0-2.0); EOSINOPHIL % 1.6 % (0-5); GRANULOCYTE % 66.6 % (42.2-75.2); HEMATOCRIT 46.2 % (37-47); MEAN CORPUSCULAR HGB 28.4 PG (27.0-31.0); MEAN CORPUSCULAR VOLUME 86.1 FL (81.0-99.0); MEAN PLATELET VOLUME 10.9 FL (7.4-10.4); PLATELET COUNT 168 /CUMM (130-400); RBC DISTRIBUTION WIDTH 14.4 % (11.5-14.5); RED BLOOD CELL CT 5.37 /CUMM (4.20-5.40); WHITE BLOOD CELL COUNT 10.8 /CUMM (4.8-10.8)
--- NOTE | 2018-04-21 13:46 | Cons- Cardiology ---
General Information and HPI Consulting Request Date of Consult: 04/21/18 Requested By: John Johnson MD Reason for Consult: Chest discomfort, hypertensive urgency, abnormal ECG Source of Information: patient, family Exam Limitations: no limitations History of Present Illness: The patient is a 57-year-old female with a past medical history of hypertension. She presented to the emergency room yesterday with chest discomfort, shortness of breath, visual changes, etc. According to the patient, she was previously on lisinopril for her blood pressure but stopped taking it several years ago due to financial/insurance issues. She has also not seen her primary care physician for several years. The chest discomfort symptoms were substernal tightness, they occurred at rest and possibly during exertion. There is some respiratory component to the symptoms as well. Visual issues as noted in the general medical history. The patient denies any other known cardiac history. In the emergency room, the patient was noted to have a blood pressure of 220/105. Since admission, and with improved blood pressure control, the patient's symptoms are resolved. Her serial troponins were negative and her ECG has not shown any evolutionary changes. Allergies/Medications Allergies: Coded Allergies: nut - unspecified (Severe, ANAPHYLAXIS- PEANUTS ARE OKAY THOUGH 04/20/18) Home Med List: Aspirin (Aspirin*) 81 MG TAB.CHEW 1 TAB PO DAILY HEART . Atorvastatin Calcium 40 MG TABLET 1 MG PO DAILY heart . Lisinopril 10 MG TABLET 1 TAB PO DAILY BP . Metoprolol Tartrate 25 MG TABLET 0.5 TAB PO BID HEART . Current Medications: Current Medications Sig/Moo Start time Last Medication Dose Route Stop Time Status Admin Acetaminophen 650 MG Q6P PRN 04/21 0230 AC PO Aspirin 81 MG DAILY 04/21 0900 AC 04/21 PO 0919 Aspirin 0 .STK-MED ONE 04/21 0113 DC PO Aspirin 325 MG ONCE ONE 04/21 0100 DC 04/21 PO 04/21 0101 0114 Atorvastatin Calcium 40 MG 1700 04/21 1700 AC PO Enoxaparin Sodium 40 MG DAILY 04/21 0900 AC 04/21 SC 0919 Hydralazine HCl 0 .STK-MED ONE 04/20 221 DC .ROUTE Hydralazine HCl 10 MG ONCE ONE 04/20 2215 DC 04/20 IV 04/20 Labetalol HCl 0 .STK-MED ONE 04/20 2337 DC IV Labetalol HCl 15 MG ONCE ONE 04/20 2330 DC 04/20 IV 04/20 2331 2342 Labetalol HCl 10 MG ONCE ONE 04/20 2145 DC 04/20 IV 04/20 Labetalol HCl 0 .STK-MED ONE 04/20 2137 DC IV Lisinopril 10 MG DAILY 04/21 09 AC 04/21 PO 0919 Lisinopril 0 .STK-MED ONE 04/20 2250 DC PO Lisinopril 10 MG ONCE ONE 04/20 2245 DC 04/20 PO 04/20 Metoprolol Tartrate 12.5 MG BID 04/21 09 AC 04/21 PO 0919 Past History Travel History Traveled to [place] past 21 day No Medical History Blood Transfusion Hx: Yes Type of Reaction: Other (see notes) Neurological: NONE EENT: L RETINAL DETACHMENT Cardiovascular: hypertension Respiratory: NONE Gastrointestinal: NONE Hepatic: NONE Renal: NONE Musculoskeletal: NONE Psychiatric: NONE Endocrine: NONE Blood Disorders: NONE Cancer(s): NONE PHYSICIAN SCRIBE/Reproductive: NONE Surgical History Surgical History: D&C Psychosocial History Where Do You Live? Home Who Do You Live With? spouse Services at Home: None Primary Language: Togolese Smoking Status: Current Everyday Smoker ETOH Use: denies use Illicit Drug Use: denies illicit drug use Functional Ability ADLs Independent: dressing, eating, toileting, bathing. Ambulation: independent IADLs Independent: shopping, housework, finances, food prep, telephone, transportation , medication admin. Exam & Diagnostic Data Vital Signs and I&O Vital Signs Date Time Temp Pulse Resp B/P B/P Pulse O2 O2 Flow FiO2 Mean Ox Delivery Rate 04/21 09 97.9 78 20 146/62 04/21 0919 97.9 78 146/62 04/21 0636 97.9 78 20 146/62 92 04/21 0302 97.9 77 20 166/98 95 Room Air 04/21 0234 74 162/86 04/21 0109 74 158/70 04/21 0031 74 169/72 04/20 2355 98.1 73 18 176/84 95 Room Air 04/20 2342 81 194/80 04/20 2333 81 194/80 04/20 2253 77 195/84 04/20 2251 77 195/84 04/20 2218 75 188/90 04/20 2153 78 18 188/90 95 Room Air 04/20 2139 78 208/110 04/20 2139 78 18 208/110 94 Room Air 04/20 2130 Room Air 04/20 2110 98.0 85 18 183/96 97 Room Air Intake & Output 04/21 0800 04/21 0000 04/20 1600 04/20 0800 04/20 0000 Intake Total 300 Output Total Balance 300 Intake, Oral 300 Patient 200 lb 200 lb Weight Physical Exam: General Appearance: well developed/nourished, overweight white female, alert, awake, oriented Head: normal HEENT: Normal Neck: supple, JVP normal, carotid upstrokes normal bilaterally, no masses or thyromegaly Respiratory: chest non-tender, clear to auscultation and percussion bilaterally Cardiovascular: regular rate/rhythm, normal S1, S2, 1/6 systolic murmur Abdomen: normal bowel sounds, soft, non-tender Extremities: normal inspection, 1+ bilateral edema Vascular: Pulses are 2+ and equal bilaterally Neurologic: Grossly normal/nonfocal Labs/Stuart Results: Laboratory Tests 04/21 04/21 0633 0030 Chemistry Sodium (137 - 145 mmol/L) 140 Potassium (3.5 - 5.1 mmol/L) 4.0 Chloride (98 - 107 mmol/L) 105 Carbon Dioxide (22 - 30 mmol/L) 29 Anion Gap (5 - 16) 6 BUN (7 - 17 mg/dL) 10 Creatinine (0.5 - 1.0 mg/dL) 0.5 Estimated GFR (>60 ml/min) > 60 BUN/Creatinine Ratio (7 - 25 %) 20.0 Hemoglobin A1c (4.2 - 5.8 %) 6.5 H Magnesium (1.6 - 2.3 mg/dL) 2.0 Troponin I (< 0.11 ng/ml) < 0.01 < 0.01 Triglycerides (<150 mg/dL) 109 Cholesterol (<200 MG/DL) 202 H LDL Cholesterol, Calc (65 - 129 mg/dL) 138 H HDL Cholesterol (40 - 60 mg/dL) 43 Cholesterol/HDL Ratio (0.00 - 4.23 %) 5 H Hematology CBC w Diff NO MAN DIFF REQ WBC (4.8 - 10.8 /CUMM) 10.8 RBC (4.20 - 5.40 /CUMM) 5.37 Hgb (12.0 - 16.0 G/DL) 15.2 Hct (37 - 47 %) 46.2 MCV (81.0 - 99.0 FL) 86.1 MCH (27.0 - 31.0 PG) 28.4 MCHC (33.0 - 37.0 G/DL) 33.0 RDW (11.5 - 14.5 %) 14.4 Plt Count (130 - 400 /CUMM) 168 MPV (7.4 - 10.4 FL) 10.9 H Gran % (42.2 - 75.2 %) 66.6 Lymphocytes % (20.5 - 51.1 %) 22.9 Monocytes % (1.7 - 9.3 %) 8.6 Eosinophils % (0 - 5 %) 1.6 Basophils % (0.0 - 2.0 %) 0.3 Absolute Granulocytes (1.4 - 6.5 /CUMM) 7.2 H Absolute Lymphocytes (1.2 - 3.4 /CUMM) 2.5 Absolute Monocytes (0.10 - 0.60 /CUMM) 0.9 H Absolute Eosinophils (0.0 - 0.7 /CUMM) 0.2 Absolute Basophils (0.0 - 0.2 /CUMM) 0 04/205 Urines Urine Color (YEL,AMB,STR) YEL Urine Clarity (CLEAR) HAZY H Urine pH (5.0 - 8.0) 6.0 Ur Specific [place] (1.001 - 1.035) 1.025 Urine Protein (NEG,<30 MG/DL) TRACE H Urine Ketones (NEG) NEG Urine Nitrite (NEG) NEG Urine Bilirubin (NEG) NEG Urine Urobilinogen (0.1 - 1.0 EU/dl) 1.0 Ur Leukocyte Esterase (NEG) TRACE H Ur Microscopic SEDIMENT EXAMINED Urine RBC (0 - 5 /HPF) 1-3 Urine WBC (0 - 2 /HPF) 5-10 H Ur Epithelial Cells (NONE,FEW) MANY H Urine Bacteria (NEG/NONE) MOD H Urine Mucus (FEW,NONE) FEW Urine Hemoglobin (NEG) SMALL H Urine Glucose (N MG/DL) NEG 04/20 2125 Chemistry Sodium (137 - 145 mmol/L) 139 Potassium (3.5 - 5.1 mmol/L) 4.1 Chloride (98 - 107 mmol/L) 102 Carbon Dioxide (22 - 30 mmol/L) 30 Anion Gap (5 - 16) 6 BUN (7 - 17 mg/dL) 11 Creatinine (0.5 - 1.0 mg/dL) 0.6 Estimated GFR (>60 ml/min) > 60 BUN/Creatinine Ratio (7 - 25 %) 18.3 Glucose (65 - 99 mg/dL) 104 H Calcium (8.4 - 10.2 mg/dL) 9.9 Magnesium (1.6 - 2.3 mg/dL) 1.9 Total Bilirubin (0.2 - 1.3 mg/dL) 0.4 AST (14 - 36 U/L) 24 ALT (9 - 52 U/L) 32 Alkaline Phosphatase (<127 U/L) 81 Troponin I (< 0.11 ng/ml) < 0.01 [id number] Pept (<125 pg/mL) 60.7 Total Protein (6.3 - 8.2 g/dL) 6.9 Albumin (3.5 - 5.0 g/dL) 4.1 Globulin (1.9 - 4.2 gm/dL) 2.8 Albumin/Globulin Ratio (1.1 - 2.2 %) 1.5 TSH &T3 &Free T4 Intrp (0.270 - 4.20 uIU/mL) 3.690 Coagulation D-Dimer High Sensitivty (0 - 243 ng/ml) < 200 Hematology CBC w Diff NO MAN DIFF REQ WBC (4.8 - 10.8 /CUMM) 13.3 H RBC (4.20 - 5.40 /CUMM) 5.60 H Hgb (12.0 - 16.0 G/DL) 15.8 Hct (37 - 47 %) 47.6 H MCV (81.0 - 99.0 FL) 85.0 MCH (27.0 - 31.0 PG) 28.2 MCHC (33.0 - 37.0 G/DL) 33.2 RDW (11.5 - 14.5 %) 14.7 H Plt Count (130 - 400 /CUMM) 190 MPV (7.4 - 10.4 FL) 10.1 Gran % (42.2 - 75.2 %) 65.3 Lymphocytes % (20.5 - 51.1 %) 22.9 Monocytes % (1.7 - 9.3 %) 9.1 Eosinophils % (0 - 5 %) 2.1 Basophils % (0.0 - 2.0 %) 0.6 Absolute Granulocytes (1.4 - 6.5 /CUMM) 8.7 H Absolute Lymphocytes (1.2 - 3.4 /CUMM) 3.0 Absolute Monocytes (0.10 - 0.60 /CUMM) 1.2 H Absolute Eosinophils (0.0 - 0.7 /CUMM) 0.3 Absolute Basophils (0.0 - 0.2 /CUMM) 0.1 Diagnostic Data EKG Results Sinus rhythm; right bundle branch block; nonspecific ST-T changes CXR Results FINDINGS: Lung volumes are normal. Lungs appear clear. No focal consolidation, pneumothorax, or pleural effusion. Cardiac silhouette is at the upper limits of normal in size, unchanged. Pulmonary vasculature is normal. No interstitial edema. Degenerative disc disease is present in the thoracic spine. Osseous structures are otherwise unremarkable. IMPRESSION: No acute pulmonary findings. Other Results CTA chest: FINDINGS: Vascular: The thoracic aorta is normal in caliber. There is no aortic dissection. There are small calcifications of the wall of the aorta at the aortic arch. Normal three-vessel aortic arch. The origin of great vessels are unremarkable. There is good opacification also of the pulmonary arteries with no evidence of pulmonary embolism. LUNGS: The lungs are clear with no evidence of inflammation or nodules. MEDIASTINUM: There is a small hiatal hernia. No pericardial effusion. No mediastinal mass. No significant lymphadenopathy. PLEURA: There is no pleural effusion. No pleural mass or thickening. AXILLA: No lymphadenopathy. UPPER ABDOMEN: There is diffuse low attenuation from fatty change of liver. There is a small gallstone seen at the neck of the gallbladder. OSSEOUS STRUCTURES: Degenerative spondylosis spine multilevel disc height narrowing and plate spurring of the vertebrae. IMPRESSION: Normal CT chest. Normal thoracic aorta. Assessment/Plan Assessment/Plan Assessment: 1. Hypertensive urgency 2. Chest pain syndrome 3. Obesity 4. Abnormal ECG with right bundle branch block 5. Hyperlipidemia 6. Elevated blood sugar/hemoglobin A1c Recommendations: -The patient stable at the present time with serially negative troponins and no new ECG changes. She is chest discomfort free at the present time. Although the symptoms are likely related to her hypertensive urgency and and not ischemic , she does need further outpatient evaluation. -Continue current medication regimen for now. Monitor blood pressure. -Ambulate with monitoring of blood pressure and heart rate -From a cardiac standpoint, once the patient's blood pressure is well controlled , if she remains asymptomatic, she can be safely discharged for further cardiac evaluation as an outpatient with a pharmacologic nuclear stress test at a later date. -I discussed this in detail with the patient and her . She will follow- up with me as an outpatient. Consult Acknowledgment - Thank you for your consult request.
[2018-04-21] MEDS ORDERED: LISINOPRIL10 M1 PO ×2 (13:49→15:26)
[2018-04-21] MEDS ORDERED: ASPIRIN81 M4 PO ×2 (13:49→15:26)
[2018-04-21] MEDS ORDERED: METOPROLOL TART25 M1 PO ×2 (13:49→15:26)
--- NOTE | 2018-04-21 13:50 | Patient Discharge Instructions ---
Discharge Instructions General Discharge Information You were seen/treated for: Hypertensive urgency Chest pain with EKG changes Watch for these problems: Please return to the ER in case of any recurrent chest pain, shortness of breath , palpitations, headaches, vision changes or lightheadedness/dizziness. Special Instructions: We have provided you with a referral for primary care physician, please follow- up. Please follow-up with your cold meat chef within a week after discharge. You need an outpatient stress test which can be arranged at that time. Diet Continue normal diet: Yes Activity Full Activity/No Limits: Yes Acute Coronary Syndrome Inclusion Criteria At DC or during hospital stay patient has or had the following: ACS DIAGNOSIS No Discharge Core Measures Meds if any: Prescribed or Continued at Discharge Meds if any: NOT Prescribed or Continued at Discharge Congestive Heart Failure Inclusion Criteria At DC or during hospital stay patient has or had the following: CHF DIAGNOSIS No Discharge Core Measures Meds if any: Prescribed or Continued at Discharge Meds if any: NOT Prescribed or Continued at Discharge Cerebrovascular accident Inclusion Criteria At DC or during hospital stay patient has or had the following: CVA/TIA Diagnosis No Discharge Core Measures Meds if any: Prescribed or Continued at Discharge Meds if any: NOT Prescribed or Continued at Discharge Venous thromboembolism Inclusion Criteria VTE Diagnosis No VTE Type NONE VTE Confirmed by (Test) NONE Discharge Core Measures - Per Current guidelines, there needs to be overlap - treatment for the first 5 days of Warfarin therapy. - If discharged on Warfarin prior to 5 days of - overlap therapy, the patient will need to be - assessed for post discharge needs including - *Post discharge parental anticoagulation - *Warfarin and/or parental anticoagulation education - *Follow up date to check INR post discharge At least 5 days overlap therapy as Inpatient No Meds if any: Prescribed or Continued at Discharge Note: Overlap Therapy is Warfarin and Anticoagulant Meds if any: NOT Prescribed or Continued at Discharge
[2018-04-21] MEDS ORDERED: ATORVASTATIN CA40 M1 PO ×2 (14:04→15:26)
[2018-04-21 15:01] VITALS: BP 140/100
--- NOTE | 2018-04-21 15:02 | ECHOCARDIOGRAM REPORT ---
GREG ABREU Age: 57 : 1960 Gender: F Exam Date: 04/21/2018 10:32 Exam Location: 1 [address] Ht (in): 63 Wt (lb): 200 BSA: 2.05 BP: 146 / 62 Ordering Physician: Rene Carlos MD Referring Physician: Rene Carlos MD Technologist: Calvin Chung [facility] Room Number: 189-1 Indications: Chest pain, unspecified Rhythm: Sinus Technical Quality: Poor, Technically difficult study FINDINGS Left Ventricle No obvious regional wall motion abnormalities. No obvious regional wall motion abnormalities. Normal size left ventricle. Left ventricular wall thickness increased. Normal left ventricular ejection fraction estimated at 60-65%. Right Ventricle Right ventricle not well visualized, grossly normal. Right Atrium Normal right atrial size. Left Atrium Left atrial dilatation. Mitral Valve Mitral valve thickened. Trace mitral regurgitation. Aortic Valve Structurally normal trileaflet aortic valve. No aortic stenosis. No aortic regurgitation. Tricuspid Valve Tricuspid valve not well visualized, grossly normal. Trace to mild tricuspid regurgitation. Pulmonic Valve Pulmonic valve not well visualized. Pericardium Small pericardial effusion. Great Vessels Aortic root and proximal ascending aorta not well visualized, grossly normal. CONCLUSIONS 1. This was a technically difficult and limited study due to the patient's body habitus. 2. The aortic valve appears to be trileaflet and normal. 3. Mild thickening of the mitral leaflets is present with minimal mitral insufficiency and mild left atrial enlargement. 4. A very small posterior pericardial effusion is present which is hemodynamically insignificant. 5. The left ventricular chamber size appears normal with mild concentric hypertrophy and a normal ejection fraction. There are no obvious resting wall motion abnormalities. 6. The right heart structures are grossly normal but were not well- visualized. Minimal to mild tricuspid insufficiency is present. There is no evidence of significant pulmonary hypertension. John Starks M.D. (Electronically Signed) Final Date: 21 April 2018 15:00 MEASUREMENTS (Male / Female) Normal Values 2D ECHO LV Diastolic Diameter PLAX 4.8 cm 4.2 - 5.9 / 3.9 - 5.3 cm LV Systolic Diameter PLAX 2.5 cm 2.1 - 4.0 cm LV Fractional Shortening PLAX 47.9 % 25 - 46 % LV Ejection Fraction 2D Teich 79.2 % IVS Diastolic Thickness 1.3 cm LVPW Diastolic Thickness 1.3 cm LV Relative Wall Thickness 0.5 RV Internal Dim ED PLAX 3.0 cm 1.9 - 3.8 cm LVOT Diameter 2.1 cm Aortic Root Diameter 3.1 cm LA Systolic Diameter LX 3.3 cm 3.0 - 4.0 / 2.7 - 3.8 cm Ascending Aorta Diameter 3.3 cm DOPPLER AV Peak Velocity 171.0 cm/s AV Peak Gradient 11.7 mmHg AV Mean Velocity 113.0 cm/s AV Mean Gradient 6.0 mmHg AV Velocity Time Integral 36.5 cm LVOT Peak Velocity 182.0 cm/s LVOT Peak Gradient 13.2 mmHg LVOT Mean Velocity 127.0 cm/s LVOT Mean Gradient 8.0 mmHg LVOT Velocity Time Integral 39.7 cm LVOT Stroke Volume 137.5 cm AV Area Cont Eq vti 3.8 cm AV Area Cont Eq pk 3.7 cm MV Peak Velocity 91.0 cm/s MV Peak Gradient 3.3 mmHg MV Mean Velocity 56.8 cm/s MV Mean Gradient 2.0 mmHg Mitral E Point Velocity 76.0 cm/s Mitral A Point Velocity 73.5 cm/s Mitral E to A Ratio 1.0 MV PHT Velocity 92.3 cm/s MV Deceleration Benzie 392.0 cm/s MV Pressure Half Time 70.6 ms MV Area PHT 3.1 cm MV Deceleration Time 246.0 ms TR Peak Velocity 175.0 cm/s TR Peak Gradient 12.3 mmHg Right Atrial Pressure 10.0 mmHg Pulmonary Artery Systolic Pressure 22.3 mmHg Right Ventricular Systolic Pressure 22.3 mmHg PV Peak Velocity 125.0 cm/s PV Peak Gradient 6.3 mmHg PV Mean Velocity 78.5 cm/s PV Mean Gradient 3.0 mmHg PV Velocity Time Integral 30.5 cm LV E' Lateral Velocity 11.2 cm/s Mitral E to LV E' Lateral Ratio 6.8 LV E' Septal Velocity 7.9 cm/s Mitral E to LV E' Septal Ratio 9.6
--- NOTE | 2018-04-22 06:02 | Discharge Summary ---
Visit Information Visit Dates Admission Date: 04/21/18 Discharge Date: 04/21/18 Hospital Course Course Attending Physician: John Johnson MD Primary Care Physician: Solis ENRIQUE,Efrain French [facility] Course: 57-year-old female with past medical history of hypertension who presents with chest pain, shortness of breath, and blurred vision. Patient reports she first noticed the chest pain about a week ago. The pain is located substernally and is described as tightness. It is associated with shortness of breath but both symptoms are intermittent. The pain happens both at rest and during exertion, however exertion seems to make it worse. Resting seems to improve it. She reports over the past week she has had blurred vision in her "good" eye, the right one. In the emergency department, patient was found to have a blood pressure >200/100, a leukocytosis of 13.3, her EKG showed normal sinus rhythm with nonspecific ST-T wave changes. Her chest x-ray showed no acute pulmonary findings, head CT showed no acute intracranial pathology, chest CT showed no abnormalities. Her initial troponin was negative. Patient admitted to telemetry for consideration of hypertensive urgency. Patient was not using any anti-hypertensive medications at home and therefore we put her on a regimen of aspirin 81mg, Linsinopril 10mg, Metoprolol 12.5 mg BID, Atorvastatin 40mg and she was advised to continue. Troponins were negative x 3. Clinically she felt better and her vitals were stable on discharge with pressure of 140/100. She was advised to follow-up with salesperson women's hats regarding her echo which showed no major abnormalities and to schedule a stress echo. Echocardiogram 04/21/18 CONCLUSIONS 1. This was a technically difficult and limited study due to the patient's body habitus. 2. The aortic valve appears to be trileaflet and normal. 3. Mild thickening of the mitral leaflets is present with minimal mitral insufficiency and mild left atrial enlargement. 4. A very small posterior pericardial effusion is present which is hemodynamically insignificant. 5. The left ventricular chamber size appears normal with mild concentric hypertrophy and a normal ejection fraction. There are no obvious resting wall motion abnormalities. 6. The right heart structures are grossly normal but were not well- visualized. Minimal to mild tricuspid insufficiency is present. There is no evidence of significant pulmonary hypertension. Chest CTA 04/20/18 IMPRESSION: Normal CT chest. Normal thoracic aorta. Head CT 04/20/18 IMPRESSION: No acute intracranial pathology. CXR 04/20/18 IMPRESSION: No acute pulmonary findings. Allergies: Coded Allergies: nut - unspecified (Severe, ANAPHYLAXIS- PEANUTS ARE OKAY THOUGH 04/20/18) Disposition Summary Disposition Principal Diagnosis: Hypertensive Urgency Additional Diagnosis: EKG changes, new RBBB Discharge Disposition: home or self care Discharge Instructions General Discharge Information Code Status: Full Code Patient's Diet: Heart healthy diet Patient's Activity: As tolerated Follow-Up Instructions/Appts: We have provided you with a referral for a primary care physician closer to your area, please follow-up. Please follow-up with your salesperson women's hats within a week after discharge for outpatient stress test which can be arranged at that time. Medications at Discharge Discharge Medications: Start taking the following new medications: Aspirin (Aspirin*) 81 MG TAB.CHEW 1 Tablet ORAL DAILY Qty = 30 No Refills Instructions: . Comments: Last Taken: 04/21/18 Time: 09:19 AM Lisinopril (Lisinopril) 10 MG TABLET 1 Tablet ORAL DAILY Qty = 30 No Refills Instructions: . Comments: Last Taken: 04/21/18 Time: 09:19 AM Metoprolol Tartrate (Metoprolol Tartrate) 25 MG TABLET 0.5 Tablet ORAL TWICE DAILY Qty = 30 No Refills Instructions: . Comments: Last Taken: 04/21/18 Time: 09:19 AM Atorvastatin Calcium (Atorvastatin Calcium) 40 MG TABLET 1 Milligram ORAL DAILY Qty = 30 No Refills Instructions: . Comments: NOT GIVEN IN HOSPITAL Copies To: Regina ENRIQUE,Regina; Margarito Starks MD
== END 2018-04-21 15:59 ==
LOC: ERH 21:04 → 1NO 04-21 01:28 → ERHI 04-21 01:28 → 1NO 04-21 01:28 → ENRESERV 04-21 02:21 → 1NO 04-21 02:57
PROVIDERS: Physician Assistant Medical; Preventive Medicine Public Health & General Preventive Medicine
DX: R07.9 Chest pain, unspecified (principal); I16.0 Hypertensive urgency; H53.8 Other visual disturbances; F17.200 Nicotine dependence, unspecified, uncomplicated; E66.9 Obesity, unspecified; Z91.19 Patient's noncompliance with other medical treatment and regimen; Z79.82 Long term (current) use of aspirin; I45.10 Unspecified right bundle-branch block
CPT/HCPCS: 6020; 36415; 71045; 81001; 82436; 93005; 93010; 93306; 96372; 96374; 96375; 96376; 99291; G0378; J0360; J1650; J3490